=== PATIENT | female | born 1965 | race Caucasian/White ===

== ENCOUNTER 2016-08-28 14:36 | Emergency (ER) | payer OTHER ==
[~2016-08-28] VITALS: Ht 160 cm; Wt 86.2 kg
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
[2016-08-28] MEDS ORDERED: PANTOPRAZOLE SO40 M1 PO (17:18)
[2016-08-28] MEDS ORDERED: MELOXICAM15 M1 PO (17:19)
[2016-08-28] MEDS ORDERED: LEVOTHYROXINE25 MCG PO (17:19)
[2016-08-28] MEDS ORDERED: AMLODIPINE BESYL5 M1 PO (17:19)
[2016-08-28] MEDS ORDERED: ATORVASTATIN CA10 M1 PO (17:19)
[2016-08-28] MEDS ORDERED: ATENOLOL100 M1 PO (17:20)
[2016-08-28] MEDS ORDERED: LOSARTAN-HCTZ1 EAC2 PO (17:20)
[2016-08-28] MEDS ORDERED: VITAMIN D2000 UNIT PO (17:20)
[2016-08-28] MEDS ORDERED: ASPIRIN EC81 M1 PO (17:20)
[2016-08-28 17:39] VITALS: BP 132/77
[2016-08-28] MEDS ORDERED: HYDROCODON-ACE1 EAC2 PO (18:54)
[2016-08-28] MEDS ORDERED: IBUPROFEN800 M1 PO (18:54)
[2016-08-28] MEDS ORDERED: CYCLOBENZAPRINE10 M1 PO (18:54)
== END 2016-08-28 19:09 ==
LOC: ERH 14:36
DX: S09.90XA Unspecified injury of head, initial encounter (principal); S39.012A Strain of muscle, fascia and tendon of lower back, initial encounter; V89.2XXA Person injured in unspecified motor-vehicle accident, traffic, initial encounter; Y93.9 Activity, unspecified; Y92.411 Interstate highway as the place of occurrence of the external cause
CPT/HCPCS: 72110